=== PATIENT | male | born 1990 | race Caucasian/White ===

== ENCOUNTER 2020-10-12 17:28 | Emergency (ER) | payer OTHER ==
--- NOTE | 2020-10-12 18:51 | ER Document Report ---
ED Medical Screen (RME) - General Stated Complaint: CONGESTION/COVID+ Time Seen by Provider: 10/12/20 18:40 Primary Care Provider: SARA HDEZ MD [Primary Care Provider] - Follow up as needed Notes: Patient presents here with significant other after having a positive rapid Covid test today. Patient states he has had cough and congestion for the past 5 days with shortness of breath. Patient states that his arms go numb after he sneezes. Patient states that he was advised by his doctor to come here for evaluation for possible blood clots. I have greeted and performed a rapid initial assessment of this patient. A comprehensive ED assessment and evaluation of the patient, analysis of test results and completion of the medical decision making process will be conducted by additional ED providers. Physical Exam - Vital signs Vitals: Temp Pulse Resp BP Pulse Ox 98.5 F 77 20 117/101 H 100 10/12/20 17:33 10/12/20 17:33 10/12/20 17:33 10/12/20 17:33 10/12/20 17:33 - General General appearance: Appears well, Alert - Respiratory Respiratory status: No respiratory distress. No: Labored, Tachypnea Breath sounds: Nonproductive cough Course - Vital Signs Vital signs: Temp Pulse Resp BP Pulse Ox 98.5 F 77 20 117/101 H 100 10/12/20 17:33 10/12/20 17:33 10/12/20 17:33 10/12/20 17:33 10/12/20 17:33 Doctor's Discharge - Discharge Referrals: SARA HDEZ MD [Primary Care Provider] - Follow up as needed
--- NOTE | 2020-10-12 19:19 | ER Document Report ---
ED General - General Chief Complaint: Shortness Of Breath Stated Complaint: CONGESTION/COVID+ Time Seen by Provider: 10/12/20 18:40 Primary Care Provider: SARA HDEZ MD [COMMUNITY BASED STAFF] - Follow up as needed - [facility] Notes: 30-year-old male presents with known Covid infection. Patient has been symptomatic for the past 3 to 4 days, tested positive today. States he has had cough, congestion, shortness of breath and sneezing. He states that he has a central pain with coughing, states that he feels very congested. He has noted that if he sneezes or coughs hard his arms will tingle. He has not taken any medication at home for symptoms. Otherwise healthy, no known medical problems. He states that he had a telehealth visit with a PA from Dr. Mccain's office, he states that he was told to go to the emergency department to have a "thorough evaluation for blood clots". Patient denies previous history of clot, no leg swelling. - Related Data Allergies/Adverse Reactions: cefaclor [From Ceclor] Allergy (Verified 10/12/20 18:53) Home Medications: singulair, loradine, afrin Past Medical History - General Information source: Patient - Social History Smoking Status: Never Smoker Chew tobacco use (# tins/day): No Frequency of alcohol use: None Drug Abuse: Bath salts Family History: Reviewed & Not Pertinent Review of Systems - Review of Systems Constitutional: Other - Fatigue EENT: No symptoms reported Cardiovascular: denies: Chest pain Respiratory: Cough, Hurts to breathe, Short of breath Gastrointestinal: No symptoms reported Genitourinary: No symptoms reported Male Genitourinary: No symptoms reported Musculoskeletal: denies: Leg swelling Skin: No symptoms reported Hematologic/Lymphatic: No symptoms reported Neurological/Psychological: denies: Weakness, Numbness Physical Exam - Vital signs Vitals: Temp Pulse Resp BP Pulse Ox 98.5 F 77 20 117/101 H 100 10/12/20 17:33 10/12/20 17:33 10/12/20 17:33 10/12/20 17:33 10/12/20 17:33 - General General appearance: Appears well, Alert In distress: None - HEENT Head: Normocephalic, Atraumatic Extraocular movements intact: Yes Pupils: PERRL - Respiratory Breath sounds: Normal - Cardiovascular Rhythm: Regular Heart sounds: Normal auscultation Normal capillary refill: Yes - Abdominal Tenderness: Nontender - Extremities General lower extremity: No: Edema - Neurological Neuro grossly intact: Yes Cognition: Normal Orientation: AAOx4 - Psychological Associated symptoms: Normal affect - Skin Skin Temperature: Warm Course - Re-evaluation Re-evalutation: 30-year-old male Covid positive with typical symptoms suggestive of known Covid infection. On exam he is alert, well-appearing, lungs are clear, there is no leg swelling. He is not tachycardic, no hypoxia. EKG is nonischemic. PERC negative. I discussed with patient the comment about ruling out blood clots. At this time I would have a low suspicion for pulmonary embolism at this time given his overall presentation. Additionally, patient does not want scan of chest performed. Will trial Mucinex for symptomatic control. 10/12/20 21:27 Patient reports improvement in symptoms. Discussed checks x-ray with him. He has had no hypoxia while in the emergency department and has remained hemodynamically stable. Appropriate for discharge at this time, discussed supportive care. Return precautions given, stable time discharge. - Vital Signs Vital signs: Temp Pulse Resp BP Pulse Ox 97.9 F 68 18 122/84 96 10/12/20 23:08 10/12/20 23:08 10/12/20 23:08 10/12/20 23:08 10/12/20 23:08 - Laboratory Results Critical Laboratory Results Reviewed: No Critical Results - Radiology Results Critical Radiology Results Reviewed: No Critical Results - EKG Interpretation by Me Additional EKG results interpreted by me: EKG is interpreted by me. Sinus rhythm, rate 72. Narrow QRS, QTC within normal limits. No ST segment elevation or depression. Discharge - Discharge Clinical Impression: COVID-19 virus infection Disposition: HOME, SELF-CARE Instructions: COVID-19 Guidance for Persons Under Investigation Additional Instructions: You may continue supportive care, which consists of Tylenol, Mucinex, Robitussin, etc. You may also consider taking daily vitamin C, vitamin D and zinc. Also advised to start a daily aspirin. Please have close follow with your primary care doctor. Return to the emergency department for any concerning worsening symptoms. Referrals: SARA HDEZ MD [COMMUNITY BASED STAFF] - Follow up as needed
--- NOTE | 2020-10-12 19:40 | RADIOLOGY REPORT (SQ) ---
EXAM DESCRIPTION: CHEST SINGLE VIEW IMAGES COMPLETED DATE/TIME: 10/12/2020 6:17 pm REASON FOR STUDY: cp, sob covid positive COMPARISON: None. EXAM PARAMETERS: NUMBER OF VIEWS: One view. TECHNIQUE: Single frontal radiographic view of the chest acquired. RADIATION DOSE: NA LIMITATIONS: None. FINDINGS: LUNGS AND PLEURA: No opacities, masses or pneumothorax. No pleural effusion. MEDIASTINUM AND HILAR STRUCTURES: No masses. Contour normal. HEART AND VASCULAR STRUCTURES: Heart normal in size. Normal vasculature. BONES: No acute findings. HARDWARE: None in the chest. OTHER: No other significant finding. IMPRESSION: NO ACUTE RADIOGRAPHIC FINDING IN THE CHEST. TECHNICAL DOCUMENTATION: JOB ID: [id number] 2010 [employer]- All Rights Reserved Reading location - IP/workstation name: [email or web address]
[2020-10-12] MEDS ORDERED: GUAIFENESIN 600 MG TABLET.SA PO ONE (19:51)
[2020-10-12 23:17] VITALS: BP 122/84
--- NOTE | 2020-10-13 08:06 | EKG REPORT ---
SEVERITY:- NORMAL ECG - SINUS RHYTHM : Confirmed by: Dwight Kulkarni MD 13-Oct-2020 08:05:08
== END 2020-10-12 23:17 | disposition home or self-care (01) ==
LOC: ER 17:28
DX: U07.1 COVID-19 (principal); R05 Cough; R06.02 Shortness of breath; R06.7 Sneezing; R07.1 Chest pain on breathing; R20.2 Paresthesia of skin; R53.83 Other fatigue; F19.10 Other psychoactive substance abuse, uncomplicated; Z79.899 Other long term (current) drug therapy
CPT/HCPCS: 71045; 93005; 93010; 99284